=== PATIENT | female | born 1965 | race Two or more races ===

== ENCOUNTER 2017-03-19 04:07 | Emergency (ER) | payer OTHER, SELFPAY ==
[~2017-03-19] VITALS: Ht 154.9 cm; Wt 75.3 kg
[2017-03-19] MEDS ORDERED: SODIUM CHLORIDE FLUSH 10ML SYR IVF ONE (05:00)
[2017-03-19] MEDS ORDERED: MECLIZINE CHEWABLE 25 MG TAB ONE (05:22)
[2017-03-19] MEDS ORDERED: FAMOTIDINE 20 MG/2 ML ONE (05:23)
[2017-03-19] MEDS ORDERED: LORazepam 2 MG/ML, 1ML ONE (05:25)
[2017-03-19] MEDS ORDERED: MECLIZINE CHEWABLE 25 MG TAB PO ONE (05:30)
[2017-03-19] MEDS ORDERED: LORazepam 2 MG/ML, 1ML IVPush ONE (05:30)
[2017-03-19 05:50] LABS: BLOOD UREA NITROGEN 12 mg/dL (7-18)
[2017-03-19 06:06] LABS: IS PT STATUS REG ER OR PRE ER? YES
[2017-03-19] MEDS ORDERED: POTASSIUM CHLORIDE 20 MEQ TAB.ER.PRT PO ONE (06:30)
[2017-03-19] MEDS ORDERED: POTASSIUM CHLORIDE 20 MEQ TAB.ER.PRT ONE (06:39)
[2017-03-19 10:14] VITALS: BP 134/74
== END 2017-03-19 10:15 | disposition home or self-care (01) ==
LOC: ED 05:25
DX: H81.10 Benign paroxysmal vertigo, unspecified ear (principal); I10 Essential (primary) hypertension
CPT/HCPCS: 36415; 70450; 70551; 71010; 80048; 82040; 84484; 85025; 93005; 96374; 99285; J2060

== ENCOUNTER 2017-03-21 11:01 | Emergency (ER) | payer SELFPAY ==
[~2017-03-21] VITALS: Ht 152.4 cm; Wt 76.6 kg
[2017-03-21] MEDS ORDERED: LISI-167 PO (11:57)
[2017-03-21] MEDS ORDERED: MECL-76 PO (11:57)
[2017-03-21] MEDS ORDERED: DIAZEPAM 5 MG TABLET PO STA (12:07)
[2017-03-21] MEDS ORDERED: METOCLOPRAMIDE 5 MG/ML, 2ML ONE (12:15)
[2017-03-21] MEDS ORDERED: DIPHENHYDRAMINE 50 MG/ML, 1ML ONE (12:15)
[2017-03-21] MEDS ORDERED: DIAZEPAM 5 MG TABLET ONE (12:17)
[2017-03-21] MEDS ORDERED: SODIUM CHLORIDE FLUSH 10ML SYR IVF ONE (12:30)
[2017-03-21] MEDS ORDERED: SODIUM CHLORIDE 0.9% 1,000ML IVBOLUS ONE (12:30)
[2017-03-21] MEDS ORDERED: METOCLOPRAMIDE 5 MG/ML, 2ML IVPush ONE (12:30)
[2017-03-21] MEDS ORDERED: DIPHENHYDRAMINE 50 MG/ML, 1ML IVPush ONE (12:30)
[2017-03-21 13:13] VITALS: BP 179/97
== END 2017-03-21 13:37 | disposition home or self-care (01) ==
LOC: ED 13:20
DX: G43.C0 Periodic headache syndromes in child or adult, not intractable (principal); H81.13 Benign paroxysmal vertigo, bilateral; I10 Essential (primary) hypertension
CPT/HCPCS: 96361; 96374; 96375; 99284; J1200; J2765; J7030